=== PATIENT | female | born 1965 ===

== ENCOUNTER 2018-02-26 13:26 | Inpatient (IN) | payer OTHER ==
[~2018-02-26] VITALS: Ht 162.6 cm; Wt 57.6 kg
== END 2018-03-06 09:40 | disposition home or self-care (01) | DRG 743 ==
LOC: O/R 03-04 08:30 → SURG 03-04 11:30 → SURG-SUITE 03-04 11:44 → CIR.AMB 03-04 13:26 → SURG 03-04 16:13 → EDSTATUS 03-04 16:13 → SURG-SUITE 03-06 09:40
PROVIDERS: Obstetrics & Gynecology
PROC: 0UT10ZZ Resection of Left Ovary, Open Approach (ICD-10-PCS; principal; 2018-03-04 11:30)
DX: D27.1 Benign neoplasm of left ovary (principal); R00.1 Bradycardia, unspecified